=== PATIENT | male | born 1940 | race Caucasian/White ===

== ENCOUNTER 2019-10-29 19:48 | Observation (INO) | payer MEDICARE, BC ==
[2019-10-29] MEDS ORDERED: ONDANSETRON HCL IV 4 MG/2 ML VIAL IVP ONE ×2 (19:59→22:09)
[2019-10-29] MEDS ORDERED: HYOSCYAMINE SULFATE ODT 0.125 MG TAB.SUBL SL ONE (20:00)
[2019-10-29] MEDS ORDERED: 0.9 % SODIUM CHLORIDE 1000ML 1,000 ML IV SCH (20:00)
[2019-10-29] MEDS ORDERED: ASPIRIN 81 MG CHEWABLE TABLET PO ONE (20:00)
--- NOTE | 2019-10-29 20:05 | Emergency Department Record ---
History of Present Illness - General Chief Complaint: Chest Pain Stated Complaint: ABD PAIN, NAUSEA Time Seen by Provider: 10/29/19 19:59 Source: Patient Mode of Arrival: Ambulatory Limitations: No limitations - History of Present Illness Initial Comments: 79 yo male presents to ED for evaluation of abdominal pain and loose stools for the past several days, denies nausea/vomiting symptoms. Patient denies fevers, chills, or urinary symptoms. Patient does report mild chest discomfort this afternoon as well, reports previous [place] in 2013. Patient denies cough or shortness of breath, denies numbness, tingling, or loss or any limb function on examination. MD Complaint: Chest pain Onset/Timin -: Hour(s) Onset: During exertion Pain Location: Substernal, Epigastric Pain Radiation: Abdomen Severity: Moderate Severity scale (1-10): 4 Consistency: Intermittent Improves With: Rest Worsens With: Exertion Context: New medications Anginal Symptoms: Nausea Treatments Prior to Arrival: None - Related Data Allergies Allergy/AdvReac Type Severity Reaction Status Date / Time Sulfa (Sulfonamide Allergy TACHYCARDIA Verified 10/29/19 19:59 Antibiotics) fenofibrate [From Tricor] AdvReac MUSCLE PAIN Verified 10/29/19 20:01 lisinopril AdvReac CONGESTION Verified 10/29/19 20:01 Travel Screening - Travel/Exposure Within Last 30 Days Have you traveled within the last 30 days?: No - Travel/Exposure Within Last Year Have you traveled outside the [place] in the last year?: No - Additonal Travel Details Have you been exposed to anyone with a communicable illness?: No - Travel Symptoms Symptom Screening: None Review of Systems Constitutional: Denies: Chills, Fever, Malaise, Night sweats Eyes: Denies: Eye discharge, Eye pain ENT: Denies: Congestion, Ear pain, Epistaxis Respiratory: Denies: Cough, Dyspnea Cardiovascular: Reports: Chest pain. Denies: Dyspnea on exertion Endocrine: Denies: Fatigue, Heat or cold intolerance Gastrointestinal: Reports: Abdominal pain, Diarrhea. Denies: Constipation, Nausea, Vomiting Genitourinary: Denies: Incontinence, Retention Musculoskeletal: Denies: Arthralgia, Back pain Skin: Denies: Bruising, Change in color Neurological: Denies: Abnormal gait, Confusion, Headache, Seizure Psychiatric: Denies: Anxiety Hematological/Lymphatic: Denies: Anemia, Blood Clots Past Medical History - SOCIAL HISTORY Smoking Status: Former smoker Alcohol Use: None Drug Use: None - RESPIRATORY Hx Respiratory Disorders: No - CARDIOVASCULAR Hx Cardio Disorders: Yes Hx Abnormal EKG: Yes Hx Cardiac Cath: Yes Hx Heart Attack: Yes Hx Hypertension: Yes - NEURO Hx Neuro Disorders: Yes Comment:: 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 due to being Jehovah Witness Family Medical History Any Significant Family History?: Yes Hx Cancer: Brother/Sister Hx Diabetes: Brother/Sister Hx Heart Disease: Father Physical Exam - General General Appearance: Alert, Oriented x3, Cooperative Limitations: No limitations - Head Head exam: Atraumatic, Normocephalic, Normal inspection Head exam detail: negative: Abrasion, Contusion, Jameson's sign, General tendern ess, Hematoma, Laceration - Eye Eye exam: Normal appearance. negative: Conjunctival injection, Periorbital swelling, Periorbital tenderness, Scleral icterus - ENT Ear exam: negative: Auricular hematoma, Auricular trauma Nasal Exam: negative: Active bleeding, Discharge, Dried blood, Foreign body Mouth exam: negative: Drooling, Laceration, Muffled voice, Tongue elevation - Neck Neck exam: Normal inspection. negative: Meningismus, Tenderness - Respiratory Respiratory exam: Normal lung sounds bilaterally. negative: Rales, Respiratory distress, Rhonchi, Stridor - Cardiovascular Cardiovascular Exam: Regular rate, Normal rhythm, Normal heart sounds - GI/Abdominal GI/Abdominal exam: Soft, Tenderness (Mild, diffuse TTP on examination). negative: Rebound, Rigid - Rectal Rectal exam: Deferred - exam: Deferred - Extremities Extremities exam: Normal inspection, Other (UE extremity pulses are 2+ bilaterally, LE pulses are 1+ and symmetric bilaterally, patient reports history of PVD). negative: Pedal edema, Tenderness - Back Back exam: Denies: CVA tenderness (R), CVA tenderness (L) - Neurological Neurological exam: Alert, Normal gait, Oriented X3 - Psychiatric Psychiatric exam: Normal affect, Normal mood - Skin Skin exam: Normal color. negative: Abrasion Type of lesion: negative: abrasion Course Vital Signs 10/29/19 19:56 Temperature 98.4 F Pulse Rate [ 84 Left] Respiratory 20 Rate Blood Pressure 205/115 [Left Arm] Pulse Ox 98 - Reevaluation(s) Reevaluation #1: 10/29/19 20:04 EKG: NSR 83 NSR with PACs, PVC Q waves III, AVF, no acute ST-T wave changes are present on examination. Reevaluation #2: 10/29/19 20:49 Laboratory studies were reviewed and appear grossly unremarkable for an acute process except for the following: CO2 21 AG 19 LA 2.7 UA pending at this time. Reevaluation #3: 10/29/19 21:18 Urinalysis was reviewed: 0-2 WBCs No bacteria RBCs: 36-50 Reevaluation #4: 10/29/19 21:52 CT Abdomen and Pelvis: 7x5 mm ureteral calculi distal right ureter with moderate hydronephrosis Cholithiasis Patient was updated on all results, will initiate treatment with Flomax and admit for serial Troponins and Urology consultation. Medical Decision Making - Lab Data Result diagrams: 10/29/19 20:05 10/29/19 20:05 Disposition Disposition: Admit Clinical Impression: Ureteral calculus, right Chest pain Qualifiers: Chest pain type: unspecified Qualified Code(s): R07.9 - Chest pain, unspecified Disposition: Still a Patient at [facility] Decision to Admit: Admit from ER Decision to Admit Date: 10/29/19 Decision to Admit Time: 21:30 Condition: (2) Stable Forms: Patient Portal Access Time of Disposition: 21:30 Quality - Quality Measures Quality Measures: N/A - Blood Pressure Screening Does Patient Have Any of the Following: Active Dx of HTN Blood Pressure Classification: Pre-Hypertensive BP Reading Systolic Measurement: 192 Diastolic Measurement: 87 Screening for High Blood Pressure: Patient Exclusion, Hx of HTN [[id number]]
[2019-10-29 20:16] LABS: ABSOLUTE NEUTROPHIL COUNT 7.65; BASO % 0.4 % (0-6); EOS % 4.2 % (0-6); HEMATOCRIT 44.3 % (42.0-52.0); HEMOGLOBIN 14.9 gm/dl (14.0-18.0); LYMPH % 19.3 % (16-45); MEAN CELL VOLUME 95.3 fl (81-97); MEAN CORPUSCULAR HGB CONC 33.6 g/dl (32-36); MEAN PLATELET VOLUME 11.6 fl (7.4-10.4); MONO % 9.1 % (0-9); PLATELET COUNT 287 K/uL (130-400); RED BLOOD COUNT 4.65 M/uL (4.40-5.70); RED CELL DISTRIBUTION WIDTH 12.7 % (11.5-14.5); WHITE BLOOD COUNT W/O DIFF 11.4 K/uL (4.2-12.2)
[2019-10-29 20:30] LABS: BLOOD UREA NITROGEN 18 mg/dL (8-23); CREATININE 1.1 mg/dL (0.7-1.2); EST GLOMERULAR FILTRATION RATE > 60 mL/min; LIPASE 48 U/L (13-60); TOTAL PROTEIN 7.8 g/dL (6.6-8.7)
[2019-10-29 20:32] LABS: GLUCOSE,RANDOM 247 mg/dL (74-109)
[2019-10-29 20:35] LABS: ALB/GLOB RATIO 1.4 (1.1-1.8); ALBUMIN 4.5 g/dL (4.0-5.0); ALKALINE PHOSPHATASE 69 U/L (40-129); ALT/SGPT 16 U/L (<41); AST/SGOT 25 U/L (10.0-50.0)
[2019-10-29 20:54] LABS: URINE APPEARANCE SL CLOUDY; URINE BILIRUBIN NEGATIVE (NEGATIVE); URINE BLOOD LARGE (NEGATIVE); URINE COLOR YELLOW; URINE KETONE TRACE (NEGATIVE); URINE LEUKOCYTE ESTERASE NEGATIVE (NEGATIVE); URINE NITRITE NEGATIVE (NEGATIVE); URINE UROBILINOGEN 0.2 E.U./dL (0.20 - 1.00)
[2019-10-29 21:01] LABS: URINE MUCUS LIGHT; URINE RBC 36 - 50 (NONE SEEN); URINE WBC 0 - 2 (0-2/hpf)
[2019-10-29] MEDS ORDERED: KETOROLAC 30 MG/ML VIAL IVP ONE (21:29)
--- NOTE | 2019-10-29 21:44 | CT SCAN REPORT ---
EXAMINATION: ABDOMEN/PELVIS W CONTRAST EXAM DATE:10/29/2019 9:24 PM TECHNIQUE: Spiral CT images were obtained from the lung bases to the ischial tuberosities with intrav enous contrast. Sagittal and coronal 2-D reformats were made from source images. See EMR for IV con trast type and dose. Oral contrast: Yes INDICATION: Abdominal pain, loose stools COMPARISON: None FINDINGS: CT Abdomen: Liver: The liver is normal in size and morphology. No focal liver lesions. Bile ducts: Normal caliber bile ducts Gallbladder: There are calcified gallstones Pancreas: No focal lesions or peripancreatic inflammation. No dilation of the main pancreatic duct . Spleen: Normal size. Adrenals: No mass or other abnormality. Kidneys and Ureters: A 7 x 5 mm stone in the distal right ureter causes moderate dilation of the col lecting system and ureter. Delayed right nephrogram as well as perinephric edema. The left kidney is unremarkable. No other urinary tract stones. GI: The bowel is unremarkable. Normal appendix. Vasculature: Unremarkable. No aneurysmal dilation of the abdominal aorta. Lymph Nodes: No lymphadenopathy. Abdominal Wall: Unremarkable. Peritoneal Cavity: No free intraperitoneal fluid or gas. Retroperitoneum: Unremarkable. Skeletal: Unremarkable. Lung bases: The lung bases are unremarkable. CT Pelvis (In addition to findings described above.): Bladder: The bladder is unremarkable. Lymph nodes: No lymphadenopathy. IMPRESSION: 1. An approximately 7 x 5 mm stone at the distal right ureter causes moderate hydronephrosis with pe rinephric edema. 2. No other urinary tract stones. 3. Cholelithiasis. 4. Other findings as described above. Dictated by: Siddhartha Jean Baptiste MD on 10/29/2019 9:35 PM. .
[2019-10-29] MEDS ORDERED: METOPROLOL SUCC 50 MG TABLET PO ONE (22:03)
[2019-10-29] MEDS ORDERED: TAMSULOSIN HCL 0.4 MG CAP.ER.24H PO ONE (22:05)
[2019-10-29] MEDS ORDERED: MORPHINE SULFATE 5 MG/ML VIAL IVP ONE (22:09)
[2019-10-29] MEDS ORDERED: METFORMIN HCL PO SCH (22:09)
[2019-10-29] MEDS ORDERED: METOPROLOL TART 25 MG TABLET PO SCH (22:09)
[2019-10-29] MEDS ORDERED: SITAGLIPTIN PHOS PO SCH (22:09)
[2019-10-29] MEDS: 0.9 % SODIUM CHLORIDE 1000ML 1,000 ML IV ONE (23:30)
[2019-10-30] MEDS: 0.9 % SODIUM CHLORIDE 1000ML 1,000 ML IV ONE (05:55)
[2019-10-30] MEDS ORDERED: GLIPIZIDE 5 MG TABLET PO SCH (07:00)
[2019-10-30] MEDS ORDERED: KETOROLAC 30 MG/ML VIAL IVP PRN (07:50)
[2019-10-30] MEDS ORDERED: AMLODIPINE BESYLATE 5MG TAB PO SCH (10:00)
[2019-10-30] MEDS ORDERED: TAMSULOSIN HCL 0.4 MG CAP.ER.24H PO SCH (10:00)
[2019-10-30] MEDS ORDERED: SIMVASTATIN 10MG TABLET PO SCH (10:00)
[2019-10-30] MEDS ORDERED: LOSARTAN POTASSIUM 100 MG TABLET PO SCH (10:00)
[2019-10-30] MEDS ORDERED: METOPROLOL TART 50 MG TABLET PO SCH (10:00)
[2019-10-30] MEDS ORDERED: ASPIRIN 81 MG CHEWABLE TABLET PO SCH (10:00)
[2019-10-30] MEDS ORDERED: HYDROCHLOROTHIAZIDE 12.5 MG CAPSULE PO SCH (10:00)
--- NOTE | 2019-10-30 12:15 | History & Physical ---
History of Present Illness - Date of Service Date of Service for History & Physical: 10/30/19 - History of Present Illness Admitting Diagnosis: Ureteral Calculi obstructing. Chest pain History of Present Illness: 79 yo male presents to ED for evaluation of abdominal pain and loose stools for the past several days, denies nausea/vomiting symptoms. Patient denies fevers, chills, or urinary symptoms. Patient does report mild chest discomfort this afternoon as well, reports previous [place] in 2013. Patient denies cough or shortness of breath, denies numbness, tingling, or loss or any limb function on examination. Travel Screening - Travel/Exposure Within Last 30 Days Have you traveled within the last 30 days?: No - Travel/Exposure Within Last Year Have you traveled outside the [place] in the last year?: No - Additonal Travel Details Have you been exposed to anyone with a communicable illness?: No - Travel Symptoms Symptom Screening: Diarrhea Review of Systems Constitutional: Denies: Chills, Fever, Malaise, Night sweats Eyes: Denies: Eye discharge, Eye pain ENT: Denies: Congestion, Ear pain, Epistaxis Respiratory: Denies: Cough, Dyspnea Cardiovascular: Reports: Chest pain. Denies: Dyspnea on exertion Endocrine: Denies: Fatigue, Heat or cold intolerance Gastrointestinal: Reports: Abdominal pain, Diarrhea. Denies: Constipation, Nausea, Vomiting Genitourinary: Denies: Incontinence, Retention Musculoskeletal: Denies: Arthralgia, Back pain Skin: Denies: Bruising, Change in color Neurological: Denies: Abnormal gait, Confusion, Headache, Seizure Psychiatric: Denies: Anxiety Hematological/Lymphatic: Denies: Anemia, Blood Clots Past Medical History - SOCIAL HISTORY Smoking Status: Former smoker Alcohol Use: Rare Drug Use: None - RESPIRATORY Hx Respiratory Disorders: No - CARDIOVASCULAR Hx Cardio Disorders: Yes Hx Abnormal EKG: Yes Hx Cardiac Cath: Yes Hx Heart Attack: Yes Hx Hypertension: Yes - NEURO Hx Neuro Disorders: Yes Comment:: 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 due to being Jehovah Witness Family Medical History Any Significant Family History?: Yes Hx Cancer: Brother/Sister Hx Diabetes: Brother/Sister Hx Heart Disease: Father H&P Meds/Allergies - Allergies Allergies: Allergies Allergy/AdvReac Type Severity Reaction Status Date / Time Sulfa (Sulfonamide Allergy TACHYCARDIA Verified 10/29/19 19:59 Antibiotics) fenofibrate [From Tricor] AdvReac MUSCLE PAIN Verified 10/29/19 20:01 lisinopril AdvReac CONGESTION Verified 10/29/19 20:01 - Active Medications Active Medications: Current Medications Amlodipine Besylate (Norvasc) 5 mg PO DAILY COUNT INCLUDES THE [facility] Aspirin (Aspirin Chewable) 81 mg PO DAILY COUNT INCLUDES THE [facility] Glipizide (Glucotrol) 10 mg PO BIDAC COUNT INCLUDES THE [facility] Last Admin: 10/30/19 08:15 Dose: Not Given Documented by: Hydrochlorothiazide (Hctz 12.5mg) 12.5 mg PO DAILY COUNT INCLUDES THE [facility] Sodium Chloride () 1,000 mls @ 0 mls/hr IV .Q0M COUNT INCLUDES THE [facility] Last Infusion: 10/29/19 21:40 Dose: Infused Documented by: Sodium Chloride () 1,000 mls @ 42 mls/hr IV .[id number] ONE Stop: 10/30/19 21:57 Last Admin: 10/30/19 05:55 Dose: 42 mls/hr Documented by: Insulin Aspart (Novolog Flexpen) 1 unit SQ QIDINS COUNT INCLUDES THE [facility]; Protocol Ketorolac Tromethamine (Toradol) 15 mg IVP Q8H PRN PRN Reason: PAIN - MOD TO SEVERE (5-10) Last Admin: 10/30/19 09:20 Dose: 15 mg Documented by: Losartan Potassium (Losartan Potassium) 100 mg PO QAM COUNT INCLUDES THE [facility] Metoprolol Tartrate (Lopressor) 50 mg PO BID COUNT INCLUDES THE [facility] Non-Formulary Medication (Sitagliptin Phos/Metformin Hcl [Janumet 50-1,000 Mg Tablet]) 1 each PO BID COUNT INCLUDES THE [facility] Simvastatin (Zocor) 5 mg PO DAILY COUNT INCLUDES THE [facility] Tamsulosin HCl (Flomax) 0.4 mg PO DAILY COUNT INCLUDES THE [facility] Physical Exam - Vital Signs Vital Signs: Vital Signs - Last 24 Hrs Temp Pulse Pulse Resp BP BP Pulse Ox 10/30/19 09:00 83 72 10/30/19 08:00 98.4 F 72 16 145/67 10/30/19 04:00 98.7 F 78 14 147/66 96 10/30/19 01:58 79 16 10/30/19 00:30 97.9 F 79 16 166/74 98 10/29/19 22:20 97.9 F 77 14 181/79 95 10/29/19 21:42 83 192/87 92 L 10/29/19 20:53 75 20 191/92 98 10/29/19 20:27 75 195/97 98 10/29/19 19:56 98.4 F 84 20 205/115 98 - General General Appearance: Alert, Oriented x3, Cooperative Limitations: No limitations - Head Head exam: Atraumatic, Normocephalic, Normal inspection Head exam detail: negative: Abrasion, Contusion, Jameson's sign, General tenderness, Hematoma, Laceration - Eye Eye exam: Normal appearance. negative: Conjunctival injection, Periorbital swelling, Periorbital tenderness, Scleral icterus - ENT Ear exam: negative: Auricular hematoma, Auricular trauma Nasal Exam: negative: Active bleeding, Discharge, Dried blood, Foreign body Mouth exam: negative: Drooling, Laceration, Muffled voice, Tongue elevation - Neck Neck exam: Normal inspection. negative: Meningismus, Tenderness - Respiratory Respiratory exam: Normal lung sounds bilaterally. negative: Rales, Respiratory distress, Rhonchi, Stridor - Cardiovascular Cardiovascular Exam: Regular rate, Normal rhythm, Normal heart sounds - GI/Abdominal GI/Abdominal exam: Soft, Tenderness (Mild, diffuse TTP on examination). negative: Rebound, Rigid - Rectal Rectal exam: Deferred - exam: Deferred - Extremities Extremities exam: Normal inspection, Other (UE extremity pulses are 2+ bilaterally, LE pulses are 1+ and symmetric bilaterally, patient reports history of PVD). negative: Pedal edema, Tenderness - Back Back exam: Denies: CVA tenderness (R), CVA tenderness (L) - Neurological Neurological exam: Alert, Normal gait, Oriented X3 - Psychiatric Psychiatric exam: Normal affect, Normal mood - Skin Skin exam: Normal color. negative: Abrasion Type of lesion: negative: abrasion Results - Labs Result Diagrams: 10/29/19 20:05 10/29/19 20:05 Labs Last 24 Hours: Laboratory Results - last 24 hr 10/29/19 10/29/19 10/29/19 20:05 20:05 20:05 WBC 11.4 RBC 4.65 Hgb 14.9 Hct 44.3 MCV 95.3 MCH 32.0 MCHC 33.6 RDW 12.7 Plt Count 287 MPV 11.6 H Gran % 67.0 Lymphocytes % 19.3 Monocytes % 9.1 H Eosinophils % 4.2 Basophils % 0.4 Absolute Neutrophils 7.65 Sodium 135 L Potassium 4.6 H Chloride 95 L Carbon Dioxide 21.0 L Anion Gap 19.0 H BUN 18 Creatinine 1.1 Estimated GFR > 60 POC Glucose Random Glucose 247 H Lactic Acid Cancelled 2.7 H Calcium 10.1 Total Bilirubin 0.20 AST 25 ALT 16 Alkaline Phosphatase 69 Troponin T < 0.010 Total Protein 7.8 Albumin 4.5 Globulin 3.3 Albumin/Globulin Ratio 1.4 Lipase 48 Urine Color Urine Appearance Urine pH Ur Specific [place] Urine Protein Urine Glucose (UA) Urine Ketones Urine Blood Urine Nitrite Urine Bilirubin Urine Urobilinogen Ur Leukocyte Esterase Urine RBC Urine WBC Urine Mucus 10/29/19 10/30/19 10/30/19 20:45 06:15 08:11 WBC RBC Hgb Hct MCV MCH MCHC RDW Plt Count MPV Gran % Lymphocytes % Monocytes % Eosinophils % Basophils % Absolute Neutrophils Sodium Potassium Chloride Carbon Dioxide Anion Gap BUN Creatinine Estimated GFR POC Glucose 200 H Random Glucose Lactic Acid Calcium Total Bilirubin AST ALT Alkaline Phosphatase Troponin T < 0.010 Total Protein Albumin Globulin Albumin/Globulin Ratio Lipase Urine Color Yellow Urine Appearance Sl cloudy Urine pH 6.5 Ur Specific [place] 1.025 Urine Protein 100 mg/dl H Urine Glucose (UA) 250 mg/dl H Urine Ketones Trace H Urine Blood Large H Urine Nitrite Negative Urine Bilirubin Negative Urine Urobilinogen 0.2 Ur Leukocyte Esterase Negative Urine RBC 36 - 50 Urine WBC 0 - 2 Urine Mucus Light 10/30/19 11:43 WBC RBC Hgb Hct MCV MCH MCHC RDW Plt Count MPV Gran % Lymphocytes % Monocytes % Eosinophils % Basophils % Absolute Neutrophils Sodium Potassium Chloride Carbon Dioxide Anion Gap BUN Creatinine Estimated GFR POC Glucose 189 H Random Glucose Lactic Acid Calcium Total Bilirubin AST ALT Alkaline Phosphatase Troponin T Total Protein Albumin Globulin Albumin/Globulin Ratio Lipase Urine Color Urine Appearance Urine pH Ur Specific [place] Urine Protein Urine Glucose (UA) Urine Ketones Urine Blood Urine Nitrite Urine Bilirubin Urine Urobilinogen Ur Leukocyte Esterase Urine RBC Urine WBC Urine Mucus VTE H&P Assessment - Risk for VTE Risk for VTE: Yes Risk Level: Low Risk Assessment Date: 10/30/19 Risk Assessment Time: 12:17 VTE Orders Placed or Will Be Placed: No VTE Reason for No Prophylaxis: Not Indicated (may go to surgery) Plan - Detailed Diagnosis and Plan (1) Ureteral calculus, right Current Visit: Yes Status: Acute Base Code: N20.1 - CALCULUS OF URETER Priority: High (2) CAD (coronary artery disease) Current Visit: Yes Status: Acute Base Code: I25.10 - ATHSCL HEART DISEASE OF [place] CORONARY ARTERY W/O ANG PCTRS Priority: Medium (3) CAD (coronary artery disease) of bypass graft Current Visit: Yes Status: Acute Base Code: I25.810 - ATHEROSCLEROSIS OF CABG W/O ANGINA PECTORIS - Disposition surgical consult with Dr. Campa
[2019-10-30] MEDS: NOVOLOG FLEXPEN (INSULIN ASPART) 100 UNITS/ML SQ SCH ×2 (16:48→17:33)
[2019-10-30] MEDS ORDERED: ENOXAPARIN 40 MG/0.4 ML SYR SQ SCH (17:15)
--- NOTE | 2019-10-30 17:18 | Discharge Summary ---
Providers Discharge Summary Date: 10/30/19 Date of admission: 10/29/19 22:03 Expected Date of Discharge: 10/30/19 Attending physician: Tristen Kim Primary care physician: Landon Castaneda Consults: Consult Orders 10/29/19 22:09 Consult NOW Consulting Provider: Jeanmarie Campa Physician Instructions: Reason For Exam: Obstructing 5x7 mm distal right ureter Physical Exam - Vital Signs Vital Signs: Vital Signs - Last 24 Hrs Temp Pulse Pulse Resp BP BP Pulse Ox 10/30/19 13:18 98.1 F 76 16 150/68 92 L 10/30/19 09:00 83 72 10/30/19 08:00 98.4 F 72 16 145/67 10/30/19 04:00 98.7 F 78 14 147/66 96 10/30/19 01:58 79 16 10/30/19 00:30 97.9 F 79 16 166/74 98 10/29/19 22:20 97.9 F 77 14 181/79 95 10/29/19 21:42 83 192/87 92 L 10/29/19 20:53 75 20 191/92 98 10/29/19 20:27 75 195/97 98 10/29/19 19:56 98.4 F 84 20 205/115 98 - General General Appearance: Alert, Oriented x3, Cooperative Limitations: No limitations - Head Head exam: Atraumatic, Normocephalic, Normal inspection Head exam detail: negative: Abrasion, Contusion, Jameson's sign, General tenderness, Hematoma, Laceration - Eye Eye exam: Normal appearance. negative: Conjunctival injection, Periorbital swelling, Periorbital tenderness, Scleral icterus - ENT Ear exam: negative: Auricular hematoma, Auricular trauma Nasal Exam: negative: Active bleeding, Discharge, Dried blood, Foreign body Mouth exam: negative: Drooling, Laceration, Muffled voice, Tongue elevation - Neck Neck exam: Normal inspection. negative: Meningismus, Tenderness - Respiratory Respiratory exam: Normal lung sounds bilaterally. negative: Rales, Respiratory distress, Rhonchi, Stridor - Cardiovascular Cardiovascular Exam: Regular rate, Normal rhythm, Normal heart sounds - GI/Abdominal GI/Abdominal exam: Soft, Tenderness (Mild, diffuse TTP on examination). n egative: Rebound, Rigid - Rectal Rectal exam: Deferred - exam: Deferred - Extremities Extremities exam: Normal inspection, Other (UE extremity pulses are 2+ bilaterally, LE pulses are 1+ and symmetric bilaterally, patient reports history of PVD). negative: Pedal edema, Tenderness - Back Back exam: Denies: CVA tenderness (R), CVA tenderness (L) - Neurological Neurological exam: Alert, Normal gait, Oriented X3 - Psychiatric Psychiatric exam: Normal affect, Normal mood - Skin Skin exam: Normal color. negative: Abrasion Type of lesion: negative: abrasion Hospitalization - Hospitalization Admission Diagnosis: Ureteral Calculi obstructing. 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 Campa - Hospitalization Course Procedures: Imaging and X-Rays 10/29/19 20:36 ABDOMEN/PELVIS W CONTRAST [CT] Stat Cardiology Procedures 10/29/19 20:21 EKG NOW 10/29/19 22:09 Insulation Supervisor .Continuous Abnormal Labs: Abnormal Lab Results 10/29/19 10/29/19 10/29/19 Range/Units 20:05 20:05 20:05 MPV 11.6 H (7.4-10.4) fl Monocytes % 9.1 H (0-9) % Sodium 135 L (136-145) mmol/L Potassium 4.6 H (3.4-4.5) mmol/L Chloride 95 L (98-107) mmol/L Carbon Dioxide 21.0 L (22-29) mmol/L Anion Gap 19.0 H (7-16) POC Glucose (70-110) mg/dL Random Glucose 247 H (74-109) mg/dL Lactic Acid 2.7 H (0.5-2.2) mmol/L Urine Protein (NEGATIVE) Urine Glucose (UA) (NEGATIVE) Urine Ketones (NEGATIVE) Urine Blood (NEGATIVE) 10/29/19 10/30/19 10/30/19 Range/Units 20:45 08:11 11:43 MPV (7.4-10.4) fl Monocytes % (0-9) % Sodium (136-145) mmol/L Potassium (3.4-4.5) mmol/L Chloride (98-107) mmol/L Carbon Dioxide (22-29) mmol/L Anion Gap (7-16) POC Glucose 200 H 189 H (70-110) mg/dL Random Glucose (74-109) mg/dL Lactic Acid (0.5-2.2) mmol/L Urine Protein 100 mg/dl H (NEGATIVE) Urine Glucose (UA) 250 mg/dl H (NEGATIVE) Urine Ketones Trace H (NEGATIVE) Urine Blood Large H (NEGATIVE) Condition at Discharge: (2) Stable VTE Discharge VTE Reason For No Overlap Therapy: Not Indicated Discharge Medications - Discharge Medications Home Medications: Ambulatory Orders Ascorbic Acid [Vitamin C] 1,000 mg PO BID 06/28/14 [Last Taken 1 Day Ago ~10/28/19] Aspirin Chewable 81 mg PO DAILY 06/28/14 [Last Taken 1 Day Ago ~10/28/19] Glipizide 10 mg PO BIDAC 06/28/14 [Last Taken 1 Day Ago ~10/28/19] Magnesium Oxide [Mag Ox] 400 mg PO BID 06/28/14 [Last Taken 1 Day Ago ~10/28/19] Metoprolol Tartrate [Lopressor] 50 mg PO BID 09/04/14 [Last Taken 1 Day Ago ~10/28/19] Sitagliptin Phos/Metformin HCl [Janumet 50-1,000 mg Tablet] 1 each PO BID 09/04/14 [Last Taken 1 Day Ago ~10/28/19] Amlodipine Besylate 5 mg PO DAILY 05/26/16 [Last Taken 1 Day Ago ~10/28/19] Hydrochlorothiazide [Hctz] 12.5 mg PO DAILY 05/26/16 [Last Taken 1 Day Ago ~10/28/19] Losartan Potassium 100 mg PO QAM tab 01/26/19 [Last Taken 1 Day Ago ~10/28/19] Lovastatin 10 mg PO DAILY tab 01/26/19 [Last Taken 1 Day Ago ~10/28/19] Discharge Plan - Discharge Instructions Activity at Discharge: Increase Activity as Tolerated Diet at Discharge: Diabetic Diet Additional Instructions: Please keep appointment with Dr. Castaneda scheduled for November 05. continue same meds toradol 10 every 8 hours for pain as needed follow up with Dr Campa for outpatient removal of kidney stone return fever ,vomiting or severe pain Quality Measures - Quality Measures Quality Measures: Advance Directives, Coronary Artery Disease: Antiplatelet Therapy, Documentation of Current Medications in Medical Record, Elder Maltreatment Screen and Follow-Up Plan, Screening for High Blood Pressure and F/U Documented - Current Medications Quality Measure: Measure #130: Documentation of Current Medications Documentation of Current Medications: <Current Medications Documented/Reviewed> [[id number]] - Blood Pressure Screening Quality Measure: Screening for High Blood Pressure and Follow-Up Documented Does Patient Have Any of the Following: Active Dx of HTN Blood Pressure Classification: Hypertensive Reading Systolic Measurement: 150 Diastolic Measurement: 68 Screening for High Blood Pressure: Patient Exclusion, Hx of HTN [G9744] - Coronary Artery Disease Quality Measure: Measure #6: Coronary Artery Disease (CAD) Antiplatelet Therapy: <ASA or clopidogrel prescribed> [6723F] - Advance Directives Quality Measure: Measure #47: Care Plan Advance Directives Established: Yes Advance Directives Information Provided To Patient: Declined Advance Directives on File: No Living Will: No Power of Box Attacher: No Advance Care Planning: <Care Plan/Decision Maker Documented; Discussed & Documented> [4588F] - Elder Abuse Suspicion Index Screening: Elder Abuse Suspicion Index Screening Rely on people for bathing, dressing, shopping, banking, etc: No Prevented from getting food, clothes, medication, etc: No Made to feel shamed or threatened by someone: No Forced to sign papers or use money against will: No Feel afraid, touched in ways not wanted or hurt physically: No Poor eye contact, withdrawn, malnourished, cuts or bruises: No Screening Result: Negative result EASI Reference Information: Jayson MARQUEZ, Maegan C, Ariane D, Aden M.Development and validation of a tool to assist physicians identification of elder abuse: The Elder Abuse Suspicion Index (EASI ). Journal of Elder Abuse and Neglect, 2008; 20 (3): 276-300. - Elder Maltreatment Screen Quality Measures: Elder Maltreatment Screen and Follow-Up Plan Elder Maltreatment Screen: <Negative, No Follow-Up Plan Required> [G8734]
== END 2019-10-30 18:20 | disposition home or self-care (01) ==
LOC: ER 19:48 → MEDSURG 22:03
PROVIDERS: ADMIT Emergency Medicine; ATTEND Emergency Medicine
DX: N20.1 Calculus of ureter (principal); I25.10 Atherosclerotic heart disease of native coronary artery without angina pectoris; E11.9 Type 2 diabetes mellitus without complications; R07.9 Chest pain, unspecified; E78.00 Pure hypercholesterolemia, unspecified; R11.0 Nausea; I10 Essential (primary) hypertension; I25.2 Old myocardial infarction; Z87.891 Personal history of nicotine dependence; Z95.5 Presence of coronary angioplasty implant and graft; I25.810 Atherosclerosis of coronary artery bypass graft(s) without angina pectoris
CPT/HCPCS: 84520; 82565; 82947; 83605; 84450; 84460; 83690; 85025; 80053; 36416; 81001; 83036; 82948; 80061; 84484 ×2; 74177; 93005; G0378 ×2; Q9967; J1980; J1885 ×2; J2405; J3490; 93010; 96374; 96375; 99220; 99285; J1650; J7030